=== PATIENT | female | born 1955 | race Caucasian/White ===

== ENCOUNTER → 2023-05-25 12:40 | Outpatient (REF) | payer MEDICARE, OTHER, SELFPAY ==
[2023-05-25 14:00] LABS: Urine Albumin Trace (Neg - Trace); Urine Bilirubin Negative (Negative); Urine Character Slightly Cloudy (Clear); Urine Color Yellow; Urine Glucose Negative (Negative); Urine Ketone 1+ (Negative); Urine Leukocyte 1+ (Negative); Urine Nitrite Positive (Negative); Urine Occult Blood Negative (Negative); Urine Urobilinogen Negative (Neg - 1+)
[2023-05-25 14:22] LABS: Urine Bacteria Many (Negative); Urine Squamous Cell 26-30 /LPF (Few)
== END ==
LOC: SDSPAT 12:40
PROVIDERS: ATTENDING PHYSICIAN Urology; FAMILY PHYSICIAN Family Medicine
DX: N30.10 Interstitial cystitis (chronic) without hematuria (principal)
CPT/HCPCS: 36415; 81003; 81015; 87086; 93005

== ENCOUNTER 2023-06-06 08:07 | Day surgery (SDC) | payer MEDICARE, OTHER, SELFPAY ==
[2023-05-25 13:40] VITALS: BMI 24.1
--- NOTE | 2023-05-30 09:26 | PTCARENOTE ---
Patients 3/6 UA with positive Nitrates, 11-15 WBC, Many bacteria- Jayshree @ Dr. Lacey office notified
[2023-06-06] VITALS (8 sets, daily range): BP systolic 95–113; BP diastolic 56–73; BMI 24.1
[2023-06-06] MEDS: NORMOSOL-R 1000 IV (07:45)
[2023-06-06] MEDS: Pyridium 200 MG PO (09:25)
== END 2023-06-06 10:45 | disposition home or self-care (01) ==
LOC: SDS 08:07
PROVIDERS: ATTENDING PHYSICIAN Urology
DX: N30.10 Interstitial cystitis (chronic) without hematuria (principal); Q64.10 Exstrophy of urinary bladder, unspecified
CPT/HCPCS: 52260

== ENCOUNTER → 2023-11-29 14:14 | Outpatient (REF) | payer MEDICARE, OTHER, SELFPAY ==
[2023-11-29 16:46] LABS: % Basophils 0.9 % (0-2); % Eosinophils 7.7 % (0-6); % Immature Granulocytes 0.3 % (0-0.5); % Lymphocytes 24.8 % (20.5-51.1); % Monocytes 7.1 % (1.7-9.3); % Neutrophils 59.2 % (42.2-75.2); Absolute Basophils 0.1 10^3/uL (0-0.2); Absolute Eosinophils 0.5 10^3/uL (0-0.7); Absolute Lymphocytes 1.6 10^3/uL (1.2-3.4); Absolute Monocytes 0.5 10^3/uL (0.1-0.6); Absolute Neutrophils 3.8 10^3/uL (1.4-6.5); Hematocrit 34.7 % (37.0-47.0); Hemoglobin 11.7 g/dL (12.0-16.0); Mean Corp Hgb Conc. 33.7 g/dL (33.0-37.0); Mean Corpuscular Hgb 33.3 pg (27.0-31.0); Mean Corpuscular Volume 98.9 fL (81.0-99.0); Mean Platelet Volume 10.2 fL (7.4-10.4); Nucleated Red Blood Cells % 0 %; Platelet Count 257 10^3/uL (130-400); Red Blood Cell Count 3.51 10^6/uL (4.20-5.40); Red Cell Dist. Width 12.8 % (11.5-14.5); White Blood Cell Count 6.5 10^3/uL (4.8-10.8)
== END ==
LOC: RCS 14:14
PROVIDERS: ATTENDING PHYSICIAN Student in an Organized Health Care Education/Training Program; FAMILY PHYSICIAN Family Medicine
DX: Z01.818 Encounter for other preprocedural examination (principal)
CPT/HCPCS: 36415; 85025; 93005

== ENCOUNTER 2024-04-09 06:22 | Day surgery (SDC) | payer MEDICARE, OTHER, SELFPAY ==
[2024-03-30 13:17] VITALS: BMI 22.4
[2024-04-09 09:04] VITALS: BP 128/78
[2024-04-09 09:08] VITALS: BMI 22.4
[2024-04-09] MEDS: NORMOSOL-R/PLASMALYTE-A 1000 IV (09:22)
[2024-04-09 12:00] VITALS: BP 117/71; BP 128/78
[2024-04-09 12:15] VITALS: BP 113/71
[2024-04-09] MEDS: VALIUM 5 MG PO (12:19)
[2024-04-09] MEDS: Pyridium 200 MG PO (12:19)
[2024-04-09 12:30] VITALS: BP 124/70
[2024-04-09 12:52] VITALS: BP 113/71
[2024-04-09 13:09] VITALS: BP 128/67
== END 2024-04-09 14:15 | disposition home or self-care (01) ==
LOC: SDS 06:22
PROVIDERS: ATTENDING PHYSICIAN Urology
PROC: 0T7B8ZZ Dilation of Bladder, Via Natural or Artificial Opening Endoscopic (ICD-10-PCS; 2024-04-09)
DX: N30.10 Interstitial cystitis (chronic) without hematuria (principal)
CPT/HCPCS: 52260

== ENCOUNTER → 2024-10-05 12:30 | Outpatient (REF) | payer MEDICARE, OTHER, SELFPAY | LOC: RCS 12:30 | PROVIDERS: ATTENDING PHYSICIAN Nurse Practitioner; FAMILY PHYSICIAN Family Medicine | DX: N30.10 Interstitial cystitis (chronic) without hematuria (principal) | CPT/HCPCS: 93005 ==

== ENCOUNTER → 2024-10-10 07:56 | Outpatient (REF) | payer MEDICARE, OTHER, SELFPAY ==
[2024-10-10 08:26] LABS: Hematocrit 34.7 % (37.0-47.0); Hemoglobin 11.6 g/dL (12.0-16.0); Mean Corp Hgb Conc. 33.4 g/dL (33.0-37.0); Mean Corpuscular Volume 98.6 fL (81.0-99.0); Platelet Count 254 10^3/uL (130-400); Red Cell Dist. Width 12.7 % (11.5-14.5)
[2024-10-10 10:06] LABS: Blood Urea Nitrogen 15 mg/dl (7-17); Calcium 9.1 mg/dl (8.4-10.2); Carbon Dioxide 29 mmol/L (22-30); Chloride 106 mmol/L (98-107); Glucose 101 mg/dl (70-99); Potassium 4.1 mmol/L (3.5-5.1); Sodium 140 mmol/L (135-145); eGFR > 60.00
== END ==
LOC: REG 07:56
PROVIDERS: ATTENDING PHYSICIAN Urology; FAMILY PHYSICIAN Family Medicine; REFERRING PHYSICIAN Nurse Practitioner
DX: N30.10 Interstitial cystitis (chronic) without hematuria (principal); Z01.818 Encounter for other preprocedural examination
CPT/HCPCS: 36415; 80048; 85027; 87077; 87086; 87186